=== PATIENT | male | born 1950 | race Caucasian/White ===

== ENCOUNTER 2023-04-10 22:55 | Emergency (ER) | payer MEDICARE, MEDICAID ==
[~2023-04-10] VITALS: Ht 170.2 cm; Wt 68.0 kg
[~2023-04-10 22:55] MED LIST: FINA1TAB18 MT; TAMS-11 MT
[2023-04-10 23:26] VITALS: TEMP 98.1; O2SAT 99
[2023-04-11] MEDS ORDERED: MICO14CR5 TP (04:20)
[2023-04-11 05:00] VITALS: BP 140/84; PULSE 70; RESP 16
== END 2023-04-11 05:00 | disposition home or self-care (01) ==
LOC: ER 23:29
DX: T83.091A Other mechanical complication of indwelling urethral catheter, initial encounter (principal); Z88.0 Allergy status to penicillin; X58.XXXA Exposure to other specified factors, initial encounter
CPT/HCPCS: 99283

== ENCOUNTER 2023-08-11 19:16 | Emergency (ER) | payer MEDICARE, MEDICAID ==
[~2023-08-11] VITALS: Ht 160 cm; Wt 68.0 kg
[~2023-08-11 19:16] MED LIST changes: +MICO14CR5 TP
[2023-08-11 19:52] VITALS: TEMP 98.5; O2SAT 97
[2023-08-11 20:15] VITALS: BP 142/86; PULSE 77; RESP 18
[2023-08-11] MEDS: TETANUS, DIPHTHERIA, PERTUSSIS VAC/PF 0.5ML (>10YR OLD) IM ONE (20:15)
[2023-08-11] MEDS: LIDOCAINE HCL/PF 1% 10 MG/ML 5ML VIAL INFIL ONE (20:15)
[2023-08-11] MEDS: BACITRACIN ZINC OINT UDPKT TOP ONE (20:15)
[2023-08-11] MEDS: HYDROCODONE/ACETAMINOPHEN 5/325MG TABLET PO ONE (20:15)
[2023-08-11] MEDS ORDERED: CLIN-194 MT (21:33)
[2023-08-11] MEDS ORDERED: IBUP-2029 MT (21:33)
[2023-08-11] MEDS ORDERED: BO1 TP (21:33)
== END 2023-08-11 22:16 | disposition home or self-care (01) ==
LOC: ER 19:16
DX: S01.81XA Laceration without foreign body of other part of head, initial encounter (principal); Z88.0 Allergy status to penicillin; Z79.899 Other long term (current) drug therapy; X58.XXXA Exposure to other specified factors, initial encounter; Y93.89 Activity, other specified; Y92.89 Other specified places as the place of occurrence of the external cause; Y99.8 Other external cause status
CPT/HCPCS: 99283; 90715; 12013; 90471; J3490

== ENCOUNTER 2023-08-13 11:52 | Emergency (ER) | payer MEDICARE, MEDICAID ==
[~2023-08-13] VITALS: Ht 172.7 cm; Wt 72.0 kg
[~2023-08-13 11:52] MED LIST changes: +BO1 TP; +CLIN-194 MT; +IBUP-2029 MT
[2023-08-13 11:55] VITALS: BP 122/99; TEMP 98.4; O2SAT 98
[2023-08-13 11:57] VITALS: PULSE 76; RESP 18
== END 2023-08-13 13:56 | disposition home or self-care (01) ==
LOC: ER 11:52
DX: S01.81XD Laceration without foreign body of other part of head, subsequent encounter (principal); Z48.00 Encounter for change or removal of nonsurgical wound dressing; Z88.0 Allergy status to penicillin; X58.XXXD Exposure to other specified factors, subsequent encounter
CPT/HCPCS: 99281

== ENCOUNTER 2023-08-21 11:18 | Emergency (ER) | payer OTHER, MEDICAID ==
[~2023-08-21] VITALS: Ht 165.1 cm; Wt 69.0 kg
[2023-08-21 11:31] VITALS: BP 125/78; PULSE 65; RESP 18; TEMP 98.1; O2SAT 97
== END 2023-08-21 16:11 | disposition home or self-care (01) ==
LOC: ER 15:41
DX: S01.81XD Laceration without foreign body of other part of head, subsequent encounter (principal); Z88.0 Allergy status to penicillin; X58.XXXD Exposure to other specified factors, subsequent encounter
CPT/HCPCS: 99281